=== PATIENT | female | born 1980 | race African-American/Black ===

== ENCOUNTER 2023-08-26 14:07 | Emergency (ER) | payer OTHER, BC ==
[2023-08-26 14:12] VITALS: RESP 18; TEMP 97.7; BMI 29.2
[2023-08-26] MEDS ORDERED: CYCLOBENZAPRINE HCL 10 MG TABLET (FP) ONE (17:01)
[2023-08-26] MEDS ORDERED: ACETAMINOPHEN 500 MG TABLET (FP) ONE (17:01)
[2023-08-26] MEDS ORDERED: IBUPROFEN 600 MG TABLET (FP) PO ONE (17:01)
[2023-08-26] MEDS: IBUPROFEN 600 MG TABLET (FP) PO ONE (17:05)
[2023-08-26] MEDS: ACETAMINOPHEN 500 MG TABLET (FP) PO ONE (17:05)
[2023-08-26] MEDS: CYCLOBENZAPRINE HCL 10 MG TABLET (FP) PO ONE (17:05)
[2023-08-26 17:48] VITALS: BP 134/69; PULSE 98
== END 2023-08-26 17:15 | disposition home or self-care (01) ==
LOC: JERFT 14:07
DX: M62.830 Muscle spasm of back (principal); M62.838 Other muscle spasm; M54.2 Cervicalgia; M25.562 Pain in left knee; W01.0XXA Fall on same level from slipping, tripping and stumbling without subsequent striking against object, initial encounter; Y93.89 Activity, other specified; Y92.000 Kitchen of unspecified non-institutional (private) residence as the place of occurrence of the external cause
CPT/HCPCS: 70450-TC; 72125-TC; 72131-TC; 73130-TC-LT-FY; 73562-TC-LT-FY; 99284-25

== ENCOUNTER 2023-11-21 13:14 | Emergency (ER) | payer OTHER, BC ==
[2023-11-21 13:23] VITALS: BP 142/100; PULSE 84; RESP 18; TEMP 98.3
[2023-11-21] MEDS ORDERED: ACETAMINOPHEN 325 MG TABLET (FP) ONE (14:36)
[2023-11-21 14:37] VITALS: BMI 27.8
[2023-11-21] MEDS: ACETAMINOPHEN 500 MG TABLET (FP) PO ONE (14:59)
== END 2023-11-21 15:51 | disposition home or self-care (01) ==
LOC: JER 13:14
DX: M79.642 Pain in left hand (principal); M25.572 Pain in left ankle and joints of left foot; W23.1XXA Caught, crushed, jammed, or pinched between stationary objects, initial encounter
CPT/HCPCS: 73110-TC-LT-FY; 73130-TC-LT-FY; 73610-TC-LT-FY; 73630-TC-LT; 93005; 93010; 99284-25

== ENCOUNTER 2023-12-11 12:15 | Emergency (ER) | payer BC, OTHER ==
[2023-12-11 12:31] VITALS: BP 132/87; PULSE 81; RESP 18; TEMP 98.7; BMI 28.3
[2023-12-11] MEDS: KETOROLAC TROMETHAMINE 30 MG/1 ML VIAL IM ONE (15:13)
== END 2023-12-11 17:04 | disposition home or self-care (01) ==
LOC: JER 12:15
PROC: 3E0133Z Introduction of Anti-inflammatory into Subcutaneous Tissue, Percutaneous Approach (ICD-10-PCS; principal; 2023-12-11)
DX: M54.2 Cervicalgia (principal); M54.9 Dorsalgia, unspecified; W01.0XXA Fall on same level from slipping, tripping and stumbling without subsequent striking against object, initial encounter
CPT/HCPCS: 96372; 99284-25